=== PATIENT | male | born 1985 | race Caucasian/White ===

== ENCOUNTER 2017-07-10 18:12 | Emergency (ER) | payer SELFPAY ==
[~2017-07-10] VITALS: Ht 180.3 cm; Wt 65.0 kg
[~2017-07-10 18:12] MED LIST: CEPHALEXIN500 MG OR; LORTAB 5 OR; NO HOME MEDS; TRAMADOL HYDROC50 MG PO
[2017-07-10 18:54] LABS: HEMATOCRIT 41.3 % (39.0-50.0); HEMOGLOBIN 13.3 g/dl (14.0-18.0); IMMATURE GRANULOCYTES 0.5 % (0.0-1.0); MEAN CELL VOLUME 79.6 fL CALC (80.0-100.0); MEAN CORPUSCULAR HGB 25.6 pG CALC (26.0-32.0); MEAN CORPUSCULAR HGB CONC 32.2 g/L CALC (32.0-36.0); NEUT# 2.85 thou/uL (1.82-7.42); RED BLOOD COUNT 5.19 mill/uL (4.70-6.10); RED CELL DISTRI WIDTH 19.5 % (11.5-15.5)
[2017-07-10 18:55] LABS: URINE BILIRUBIN - DIPSTICK NEGATIVE (NEGATIVE); URINE BLOOD DIPSTICK NEGATIVE (NEGATIVE); URINE CLARITY CLEAR; URINE COLOR YELLOW; URINE GLUCOSE - DIPSTICK NEGATIVE (NEGATIVE); URINE KETONE NEGATIVE (NEGATIVE); URINE LEUK ESTERASE NEGATIVE (NEGATIVE); URINE NITRITE - DIPSTICK NEGATIVE (Negative); URINE PROTEIN - DIPSTICK NEGATIVE (NEG-TRACE); URINE SPECIFIC GRAVITY <=1.005; URINE UROBILINOGEN - DIPSTICK 0.2 E.U./dL (0.2)
[2017-07-10 19:16] LABS: ALBUMIN 4.7 g/dL (3.2-5.0); ALKALINE PHOSPHATASE 78 u/l (38-126); AMYLASE 104 u/l (30-110); ANION GAP 18 (6-22 (CALC)); BILIRUBIN, TOTAL 0.7 mg/dL (0.0-1.4); BUN 4 mg/dL (9-20); BUN/CREATININE RATIO 6 (12-20 (CALC)); CALCIUM 9.5 mg/dL (8.4-10.2); CARBON DIOXIDE 25 mmol/l (22-30); CHLORIDE 102 mmol/l (95-108); CREATININE 0.6 mg/dL (0.7-1.3); GFR > 60 ML/MIN (>=60 (CALC)); GFR FOR AFR.AMER. > 60 ML/MIN (>=60 (CALC)); GLUCOSE 96 mg/dL (75-110); LIPASE 325 u/l (23-300); POTASSIUM 3.4 mmol/l (3.5-5.1); SGOT/AST 81 u/l (17-59); SGPT/ALT 59 u/l (21-72); SODIUM 142 mmol/l (137-146); TOTAL PROTEIN 8.2 g/dL (6.3-8.2)
[2017-07-10 22:47] VITALS: BP 132/84
== END 2017-07-10 22:51 | disposition home or self-care (01) | DRG 392 ==
LOC: ED 18:12
PROVIDERS: Emergency Medicine
DX: R10.84 Generalized abdominal pain (principal); F17.210 Nicotine dependence, cigarettes, uncomplicated; R50.9 Fever, unspecified; R19.7 Diarrhea, unspecified; R74.8 Abnormal levels of other serum enzymes; Z72.89 Other problems related to lifestyle
CPT/HCPCS: Q9967

== ENCOUNTER 2021-11-10 02:11 | Emergency (ER) | payer OTHER, BC ==
[~2021-11-10] VITALS: Ht 180.3 cm; Wt 59.0 kg
[2021-11-10 02:42] LABS: IMMATURE GRANULOCYTES 0.9 % (0.0-5.0); MEAN CORPUSCULAR HGB 22.2 pG CALC (26.0-32.0); NEUT# 7.02 thou/uL (1.82-7.42); RED BLOOD COUNT 3.34 mill/uL (4.70-6.10); RED CELL DISTRI WIDTH 19.6 % (11.5-15.5)
[2021-11-10 02:43] LABS: HEMATOCRIT 26.4 % (39.0-50.0); HEMOGLOBIN 7.4 g/dl (14.0-18.0)
[2021-11-10 03:04] LABS: URINE BLOOD DIPSTICK NEGATIVE (NEGATIVE); URINE CLARITY SL CLOUDY; URINE COLOR YELLOW; URINE GLUCOSE - DIPSTICK NEGATIVE (NEGATIVE); URINE KETONE 15 mg/dL (NEGATIVE); URINE LEUK ESTERASE NEGATIVE (Negative); URINE NITRITE - DIPSTICK NEGATIVE (Negative); URINE PROTEIN - DIPSTICK NEGATIVE (NEG-TRACE); URINE SPECIFIC GRAVITY 1.025
[2021-11-10 03:09] LABS: GFR > 60 ML/MIN (>=60 (CALC)); GFR FOR AFR.AMER. > 60 ML/MIN (>=60 (CALC))
[2021-11-10 03:10] LABS: BILIRUBIN, TOTAL 0.8 mg/dL (0.0-1.4); BUN 3 mg/dL (9-20); BUN/CREATININE RATIO 7 (12-20 (CALC)); CARBON DIOXIDE 22 mmol/l (22-30); CHLORIDE 99 mmol/l (95-108); CREATININE 0.5 mg/dL (0.7-1.3); ETHYL ALCOHOL 191 mg/dl (0-30); GFR > 60 ML/MIN (>=60 (CALC)); GFR FOR AFR.AMER. > 60 ML/MIN (>=60 (CALC)); POTASSIUM 3.7 mmol/l (3.5-5.1); SGOT/AST 141 u/l (17-59); TOTAL PROTEIN 7.6 g/dL (6.3-8.2)
[2021-11-10 03:11] LABS: ALBUMIN 3.6 g/dL (3.2-5.0); ALKALINE PHOSPHATASE 124 u/l (38-126); ANION GAP 16 (6-22 (CALC)); SODIUM 133 mmol/l (137-146)
[2021-11-10 03:12] LABS: URINE BILIRUBIN - DIPSTICK SMALL (NEGATIVE)
[2021-11-10] MEDS ORDERED: CELEBREX200 MG PO (05:46)
[2021-11-10] MEDS ORDERED: CHROMAGEN1 CAP PO (05:46)
[2021-11-10] MEDS ORDERED: PROTONIX40 M2 PO (05:46)
[2021-11-10 05:55] VITALS: BP 122/71
== END 2021-11-10 05:55 | disposition home or self-care (01) | DRG 551 ==
LOC: ED 02:11
PROVIDERS: Family Medicine
DX: M54.2 Cervicalgia (principal); R07.89 Other chest pain; M54.9 Dorsalgia, unspecified; S80.211A Abrasion, right knee, initial encounter; R10.11 Right upper quadrant pain; T14.8XXA Other injury of unspecified body region, initial encounter; D64.9 Anemia, unspecified; F10.129 Alcohol abuse with intoxication, unspecified; K29.21 Alcoholic gastritis with bleeding; F17.200 Nicotine dependence, unspecified, uncomplicated; V59.40XA Driver of pick-up truck or van injured in collision with unspecified motor vehicles in traffic accident, initial encounter
CPT/HCPCS: Q9967

== ENCOUNTER 2022-07-05 13:52 | Emergency (ER) | payer BC ==
[~2022-07-05] VITALS: Ht 180.3 cm; Wt 56.8 kg
[~2022-07-05 13:52] MED LIST changes: +CELEBREX200 MG PO; +CHROMAGEN1 CAP PO; +PROTONIX40 M2 PO
[2022-07-05] MEDS ORDERED: NAPROXEN500 MG PO (15:54)
[2022-07-05 16:20] VITALS: BP 125/80
== END 2022-07-05 16:21 | disposition home or self-care (01) | DRG 552 ==
LOC: ED 13:52
DX: M53.3 Sacrococcygeal disorders, not elsewhere classified (principal); R64 Cachexia; F17.210 Nicotine dependence, cigarettes, uncomplicated

== ENCOUNTER 2022-09-05 17:34 | Emergency (ER) | payer OTHER, BC ==
[~2022-09-05] VITALS: Ht 180.3 cm; Wt 61.0 kg
[2022-09-05] VITALS (7 sets, daily range): BP systolic 131–165; BP diastolic 78–100
[~2022-09-05 17:34] MED LIST changes: +NAPROXEN500 MG PO
[2022-09-05 18:16] LABS: IMMATURE GRANULOCYTES 0.6 % (0.0-5.0); MEAN CELL VOLUME 78.6 fL CALC (80.0-100.0); MEAN CORPUSCULAR HGB 24.2 pG CALC (26.0-32.0); MEAN CORPUSCULAR HGB CONC 30.7 g/dL CAL (32.0-36.0); NEUT# 4.08 thou/uL (1.82-7.42); RED BLOOD COUNT 4.59 mill/uL (4.70-6.10); RED CELL DISTRI WIDTH 19.6 % (11.5-15.5)
[2022-09-05 18:17] LABS: HEMATOCRIT 36.1 % (39.0-50.0); HEMOGLOBIN 11.1 g/dl (14.0-18.0)
[2022-09-05 18:24] LABS: ALBUMIN 4.2 g/dL (3.2-5.0); BILIRUBIN, TOTAL 0.6 mg/dL (0.0-1.4); CHLORIDE 102 mmol/l (95-108); CREATININE 0.5 mg/dL (0.7-1.3); GFR FOR AFR.AMER. > 60 ML/MIN (>=60 (CALC)); GFR OTHER RACES > 60 ML/MIN (>=60 (CALC)); POTASSIUM 4.2 mmol/l (3.5-5.1); SGOT/AST 127 u/l (17-59); TOTAL PROTEIN 7.8 g/dL (6.3-8.2)
[2022-09-05 18:25] LABS: ALKALINE PHOSPHATASE 224 u/l (38-126); ANION GAP 19 (6-22 (CALC)); BUN 2 mg/dL (9-20); BUN/CREATININE RATIO 4 (12-20 (CALC)); CARBON DIOXIDE 27 mmol/l (22-30); SODIUM 144 mmol/l (137-146)
[2022-09-05 18:37] LABS: ETHYL ALCOHOL 358 mg/dl (0-30)
[2022-09-05 20:06] LABS: URINE BILIRUBIN - DIPSTICK NEGATIVE (NEGATIVE); URINE BLOOD DIPSTICK NEGATIVE (NEGATIVE); URINE CLARITY CLEAR; URINE COLOR YELLOW; URINE GLUCOSE - DIPSTICK NEGATIVE (NEGATIVE); URINE KETONE TRACE mg/dL (NEGATIVE); URINE LEUK ESTERASE NEGATIVE (Negative); URINE NITRITE - DIPSTICK NEGATIVE (Negative); URINE PROTEIN - DIPSTICK 30 mg/dL (NEG-TRACE); URINE SPECIFIC GRAVITY 1.025; URINE UROBILINOGEN - DIPSTICK 0.2 E.U./dL (0.2)
[2022-09-05] MEDS ORDERED: METHOCARBAMOL500 MG PO (20:07)
[2022-09-05] MEDS ORDERED: NAPROXEN500 MG PO (20:07)
[2022-09-05 20:08] LABS: URINE RBC 0-2 RBC/hpf (0-5); URINE WBC 0-2 WBC/hpf (0-5)
== END 2022-09-05 22:00 | disposition home or self-care (01) | DRG 914 ==
LOC: ED 17:34
PROVIDERS: Nurse Practitioner
DX: T14.8XXA Other injury of unspecified body region, initial encounter (principal); K50.90 Crohn's disease, unspecified, without complications; V43.52XA Car driver injured in collision with other type car in traffic accident, initial encounter; F17.210 Nicotine dependence, cigarettes, uncomplicated; F10.129 Alcohol abuse with intoxication, unspecified; Y90.8 Blood alcohol level of 240 mg/100 ml or more
CPT/HCPCS: Q9967

== ENCOUNTER 2023-10-09 22:34 | Emergency (ER) | payer BC ==
[~2023-10-09] VITALS: Ht 180.3 cm; Wt 63.5 kg
[~2023-10-09 22:34] MED LIST changes: +METHOCARBAMOL500 MG PO
[2023-10-10 00:40] VITALS: BP 128/85
== END 2023-10-10 00:40 | disposition home or self-care (01) | DRG 605 ==
LOC: ED 22:34
PROC: 0HQLXZZ Repair Left Lower Leg Skin, External Approach (ICD-10-PCS; principal; 2023-10-09)
DX: S81.812A Laceration without foreign body, left lower leg, initial encounter (principal); F17.200 Nicotine dependence, unspecified, uncomplicated; W20.8XXA Other cause of strike by thrown, projected or falling object, initial encounter